=== PATIENT | female | born 1950 | race Caucasian/White ===

== ENCOUNTER 2019-04-24 13:43 | Emergency (ER) | payer MEDICARE, OTHER | END 2019-04-24 14:03 | disposition home or self-care (01) | LOC: BURERS 13:43 | DX: M77.52 Other enthesopathy of left foot and ankle (principal); E78.5 Hyperlipidemia, unspecified; E78.00 Pure hypercholesterolemia, unspecified; I10 Essential (primary) hypertension; Z79.899 Other long term (current) drug therapy | CPT/HCPCS: 99283 ==

== ENCOUNTER 2023-07-03 13:58 | Emergency (ER) | payer MEDICARE ==
[2023-07-03] MEDS ORDERED: Norepinephrine 4 MG/4 ML VIAL ONE ×2 (14:07→14:08)
[2023-07-03 14:30] LABS: #Eosinphils 0.2 thou/uL (0.0-0.7); #Lymphocytes 1.1 thou/uL (1.20-3.40); #Monocytes 0.5 thou/uL (0.11-0.59); #Neutrophils 3.8 thou/uL (1.40-6.50); %Basophils 0.7 % (0.0-1.0); %Eosinophils 3.1 % (0.0-10.0); %Lymphocytes 19.3 % (21.0-51.0); %Monocytes 8.3 % (0.0-10.0); %Neutrophils 68.6 % (42.0-75.0); Hematocrit 39.1 % (36.0-47.0); Mean Corpuscular HGB CONC 33.2 g/dL (32.0-36.0); Mean Corpuscular Volume 90.5 fl (78.0-98.0); Platelet Count 236 10x3/uL (130-400); RBC Distribution Width 16.2 % (11.5-14.5); Red Blood Cell (RBC) Count 4.32 mill/uL (4.20-5.40); White Blood Cell (WBC) Count 5.6 10x3/uL (4.8-10.8)
[2023-07-03 14:32] LABS: ALT (SGPT) 22 U/L (8-55); AST (SGOT) 16 U/L (5-34); Acetaminophen Less than 10 mcg/mL (10.0-30.0); Alcohol Less than 10.0 mg/dL (Less than 10); Alkaline Phosphatase 77 U/L (40-110); Anion Gap 16 mmol/L (10-20); BUN (Urea Nitrogen) 12 mg/dL (9.8-20.1); Bilirubin, Total 0.6 mg/dL (0.2-1.2); Calc. Creatinine Clearance 0 mL/min (70-130); Calcium 9.5 mg/dL (7.8-10.44); Carbon Dioxide 22 mmol/L (23-31); Chloride 107 mmol/L (98-107); Estimated GFR 38; Globulin 2.9 g/dL (2.4-3.5); Glucose 127 mg/dL (80-115); Potassium 4.2 mmol/L (3.5-5.1); Protein, Total 6.9 g/dL (5.8-8.1); Salicylate Less than 8.0 mg/dL (15.0-30.0); Sodium 141 mmol/L (136-145)
[2023-07-03 14:34] LABS: MDiff Complete? YES
[2023-07-03] MEDS ORDERED: Atropine Sulfate 1 mg/10 ml Syringe ONE (14:36)
[2023-07-03 14:54] LABS: Bilirubin Negative (Negative); Blood, Urine Moderate (Negative); Clarity Cloudy (Clear); Glucose, Urine (Dipstick) Negative (Negative); Ketone, Urine Negative (Negative); Leukocyte Negative (Negative); Nitrite Negative (Negative); Protein, Urine (Dipstick) 100 mg/dL (Neg-Trace); Urobilinogen 0.2 mg/dL (Less than 2)
[2023-07-03 15:01] LABS: Bacteria/HPF 3+ HPF (None Seen); CAUTI Indications for Culture Alt mental st,lethar; Mucous/LPF 3+ LPF (<2+); RBC/HPF Greater than 50 HPF (0-3); Urine Culture Reflex No No
[2023-07-03 15:06] LABS: Amphetamine Not Detected (NotDetected); Barbiturates Screen Not Detected (NotDetected); Benzodiazepine Screen Not Detected (NotDetected); Cocaine Metabolite Screen Not Detected (NotDetected); Methadone Not Detected (NotDetected); Methamphetamine Not Detected (NotDetected); Opiate Screen Detected (NotDetected); Oxycodone Screen Not Detected (NotDetected); Phencyclidine (PCP) Not Detected (NotDetected); THC/Cannabinoid Screen Not Detected (NotDetected); Tricyclic Screen Not Detected (NotDetected)
== END 2023-07-03 15:03 | disposition short-term general hospital (02) ==
LOC: BURERS 13:58
DX: T45.7X1A Poisoning by anticoagulant antagonists, vitamin K and other coagulants, accidental (unintentional), initial encounter (principal); I10 Essential (primary) hypertension
CPT/HCPCS: 80053; 80306; 80307; 81001; 85025; 93005; 96360; 96365; J0461

== ENCOUNTER 2023-11-02 17:13 | Emergency (ER) | payer MEDICARE ==
[2023-11-02] MEDS ORDERED: Ibuprofen 800 MG TAB ONE (17:24)
[2023-11-02 18:10] LABS: Influenza A by NAA Not Detected (NotDetected); Influenza B by NAA Not Detected (NotDetected); SARS-CoV-2 NAA Rapid Test Not Detected (NotDetected)
== END 2023-11-02 18:35 | disposition home or self-care (01) ==
LOC: BURERS 17:13
DX: J06.9 Acute upper respiratory infection, unspecified (principal); I10 Essential (primary) hypertension
CPT/HCPCS: 0240U; 71046